=== PATIENT | male | born 1970 ===

== ENCOUNTER 2019-07-06 10:42 | Outpatient (CLI) | payer BC ==
--- NOTE | 2019-07-06 12:34 | Diagnostic Imaging Report ---
Indication:Scrotal pain. 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 Technique: Real time grayscale and duplex Doppler imaging of the scrotum performed. Comparison: None Findings: The size, contour, and echogenicitiy of the testis appear normal bilaterally. The left testis is mildly heterogeneous and slightly smaller measuring 3.2 x 2 x 1.5 cm. Right testis is homogeneous and measures 3.7 x 2.5 x 1.7 cm. There is no testicular mass or evidence of torsion. There is good doppler evidence of blood flow within both testes. Epididimi are unremarkable. Trace fluid noted within the scrotal sac on the right side. Impression: No acute findings. No evidence of testicular mass or torsion. Trace right hydrocele.
== END 2019-07-06 12:42 | disposition home or self-care (01) ==
LOC: ULS 10:42
DX: N50.82 Scrotal pain (principal); N50.812 Left testicular pain
CPT/HCPCS: 76870